=== PATIENT | female | born 1975 | race Caucasian/White ===

== ENCOUNTER → 2017-02-18 | Outpatient (CLI) | payer OTHER ==
--- NOTE | 2017-02-19 07:19 | CONS ---
DATE OF CONSULTATION: 02/18/2017 CONSULTATION/NEW PATIENT EVALUATION: A 41-year-old lady who has been evaluated in the [facility] for obstructive sleep apnea-hypopnea syndrome. HISTORY OF PRESENT ILLNESS/SLEEP-WAKE EVALUATION: Patient had been diagnosed with obstructive sleep apnea about 8 years ago in [facility]. She was started on treatment with CPAP unit but about 3 years, because of bad condition of her CPAP unit, some problem with humidification and bad condition of her humidifier, patient stopped using her CPAP equipment. SLEEP SCHEDULE: Presenting her sleep schedule from around 8:30 p.m. until 4:30 a.m. on working days and from around 9:30 p.m. until 7:30 a.m. on weekends. FALLING ASLEEP: She usually has problem with the falling asleep secondary to room noise, light, too hot situation, pain, child, stress. She wakes TV in bedroom. DURING SLEEP: Usually sleeps on the back or side position with snoring, witnessed episodes of stopped breathing during the sleep. She wakes up from sleep with dry mouth, panic attacks, grinding teeth, palpitations, gasping for air up to 20 times with up to 4 episodes of nocturia. DURING THE DAY/WAKE STATE: In the morning patient wakes up tired, has difficulties to pay attention, falling asleep during the day, worries about her sleep, has problems with mainly concentration, depression, anxiety, claustrophobia, sexual dysfunction. [place] Sleepiness Scale significantly increased to 15. MEDICATIONS: Ultram, Klonopin, Flexeril, eardrops steroids with erythromycin. PAST MEDICAL HISTORY: Positive for closed head injury in 2015 with subdural hematoma. Episodes of very severe headaches in the back of her head since she has had closed head injury. PAST SURGICAL HISTORY: Cholecystectomy, surgery for carpal tunnel syndrome, tonsillectomy, tubal ligation, ( ) construction. SOCIAL HISTORY: Positive for smoking for about 15 pack-years; quit around 2014. Alcohol consumption none at the present time. REVIEW OF SYSTEMS: Multiple awakenings from sleep, excessive daytime sleepiness, episodes of strong headaches. FAMILY HISTORY: Hypertension, heart problems, hyperlipidemia, stroke, fibromyalgia, arthritis, lung problems, emphysema, sleep apnea, snoring, pneumonia, headaches, cancer, insomnia, acid reflux, ulcers, thyroid problems, iron deficiency and B12 deficiency anemia. During physical exam, a lady without distress. BP 109/76, HR 85, RR 16. Height 5, 5. Weight 212.2. BMI 35.2. Neck 15 inches in circumference [place] Sleepiness Scale 15. Temperature 98. Oxygen saturation at room air 100%. Oropharynx extremely low position of soft palate, restriction of nasal breathing significantly on the left side. ABDOMEN: Obese. EXTREMITIES: 1+ ankle edema. NECK: Supple. No JVD. Thyroid is not palpable. LUNGS: Clear to percussion and to auscultation. Good air exchange. No wheezing or rhonchi. HEART: S1, S2 regular. No murmurs, gallops or rubs. REGIONAL TRAINER: Awake, alert, and oriented x3. Cranial nerves 2 to 7 intact. There is no fasciculation or atrophy noted. No focal deficits observed. IMPRESSION: 1. Snoring, witnessed episodes of stopped breathing during the sleep, extremely low position of soft palate, multiple awakenings from sleep, history of obstructive sleep apnea-hypopnea syndrome. 2. Obesity, body mass index of 35.2. 3. Status post a closed head injury with subdural hematoma in 2014. 4. Episodes of extremely strong headaches on the back of her head. 5. Status post cholecystectomy. 6. Status post surgery for carpal tunnel syndrome bilaterally. 7. Status post tubal ligation. 8. Status post section. PLAN: 1. Polysomnography for evaluation of patient's breathing during sleep. 2. CPAP/BiPAP titration if sleep study confirms obstructive sleep apnea-hypopnea syndrome. 3. Preferable position during sleep on the side. 4. No driving if patient feels any sleepiness. Patient is aware of civil and criminal liability for unsafe driving. 5. I will see patient for follow-up visit to explain results of the testing and following plan. Thank you very much for referring this patient for consultation. Sincerely, Ricky Rg MD, PhD, FAASM. Diplomat of [employer], Sleep Medicine Board by [employer] of [facility] [place]
== END | disposition home or self-care (01) ==
LOC: SLEEP 16:13
PROVIDERS: ATTEND Internal Medicine
DX: E66.9 Obesity, unspecified (principal); R06.83 Snoring; R51 Headache; Z68.35 Body mass index [BMI] 35.0-35.9, adult; Z90.49 Acquired absence of other specified parts of digestive tract; Z98.890 Other specified postprocedural states; Z79.899 Other long term (current) drug therapy
CPT/HCPCS: 99201

== ENCOUNTER → 2017-06-10 | Outpatient (CLI) | payer OTHER ==
--- NOTE | 2017-06-11 08:10 | PN ---
A 42-year-old lady who has been followed in Sleep Center for treatment of severe obstructive apnea-hypopnea syndrome. Recently patient had diagnostic sleep study and CPAP titration and I discussed results of the sleep studies with patient in detail. Diagnostic sleep study severe obstructive sleep apnea-hypopnea syndrome with apnea-hypopnea index 36.2 and oxygen desaturation to 84.1%. CPAP titration showed that only with the pressure of 15 patients respirations were under control. Subsequently, patient was started on treatment with CPAP. She indicated that she feels that pressure is too high for her and she sometimes has headaches related to the pressure. During the test in Sleep Center she feels well on the following day and sometimes when she is using machine she feels well but most of the time again she feels the pressure is too much. I checked her CPAP unit. CPAP pressure is 15 cm of water. The patient used equipment 14 out of 30 nights and 8 out of 30 nights for more than 4 hours. Average usage is 4.6 hours. No significant leak 54 liters per minute. Apnea- hypopnea index with the machine is in normal range and is 2.1 per hour. MEDICATIONS: Ultram, Klonopin, Flexeril, eye drops. During physical exam, the patient is in no distress. VITAL SIGNS: BP 126/75, HR 86, RR 16, weight 213, temp 98.2, oxygen saturation on room air 98%. HEENT: PERRLA, EOMI. Evaluation of oropharynx showed moderate to extremely low position of soft palate. NECK: Supple. No JVD. Thyroid is not palpable. LUNGS: clear to percussion and to auscultation. Good air exchange. No wheezing or rhonchi. HEART: S1, S2 regular. No murmurs, gallops or rubs. ABDOMEN: Obese. Soft and nontender. Bowel sounds are present. No organomegaly appreciated. EXTREMITIES: No cyanosis or clubbing. PROJECT FINANCE ANALYST: Awake, alert and oriented x3. Cranial nerves II through VII intact. There is no fasciculation or atrophy noted. No focal deficits observed. IMPRESSION: 1. Severe obstructive sleep apnea-hypopnea syndrome. Apnea-hypopnea index 36.2 with oxygen desaturation to 84.15. Respirations normalized with CPAP but patient feels the pressure is too high for her and sometimes develops headaches. 2. Obesity. 3. Status post closed head injury with subdural hematoma in 2014. 4. Episodes of extremely strong headaches. 5. Status post cholecystectomy. 6. Status post surgical treatment for carpal tunnel syndrome bilaterally. 7. Status post tubal ligation. 8. Status post . PLAN: 1. I will adjust machine to automatic regimen in the pressure range between 5 and 15 cm of water to check possibly to decrease pressure in the unit. 2. Continue to use CPAP equipment every night. 3. Losing weight. 4. Sleep hygiene with regular time in bed for at least 8 hours. 5. No driving if patient feels any sleepiness. Thank you very much for allowing me to participate in the management of your patient. Sincerely, Jyoti Rg MD, PhD, FAASM Diplomat of [employer] [employer], Sleep Medicine Board by [employer] Cardiology Clinical Nurse Specialist of [facility] [place] [facility]
== END | disposition home or self-care (01) ==
LOC: SLEEP 16:22
PROVIDERS: ATTEND Internal Medicine
DX: G47.33 Obstructive sleep apnea (adult) (pediatric) (principal); E66.9 Obesity, unspecified; Z90.49 Acquired absence of other specified parts of digestive tract; Z98.890 Other specified postprocedural states

== ENCOUNTER → 2017-07-15 | Outpatient (CLI) | payer OTHER ==
--- NOTE | 2017-07-16 13:55 | PN ---
PROGRESS NOTE DATE OF SERVICE: 07/15/2017 A 42-year-old lady who had been followed in the Sleep Center for treatment of obstructive sleep apnea-hypopnea syndrome and insomnia. At the present time, she is on treatment with CPAP with a pressure of 13 cm of water and she was able to use equipment for the last month with 57% of the time and 40% of the time it was more than 4 hours per night. Apnea-hypopnea index reading from the machine is 3.1, which is in normal range. Patient did not experience any chest discomfort with this pressure of the machine. But she still continued to have problem with falling asleep, only again now if she falls asleep, then she is able to sleep through better than before. [place] Sleepiness Scale today is 5. MEDICATIONS: Baclofen, Motrin. PHYSICAL EXAM: Patient in no distress. BP 104/75, HR 90, RR 16, height 5, 5. Weight 212. BMI 35. Temp 98.2, oxygen saturation at room 100%. OROPHARYNX: Moderately to extremely low position of soft palpate. ABDOMEN: Slightly obese. NECK: Supple, no JVD. Thyroid is not palpable. LUNGS Clear to percussion and to auscultation. Good air exchange. No wheezing or rhonchi. HEART S1, S2 regular. No murmurs, gallops, or rubs. EXTREMITIES No clubbing or cyanosis. IRON MINER BLASTING Awake, alert, and oriented X3. Cranial nerves 2 to 7 intact. There is no fasciculation or atrophy. noted. No focal deficits observed. IMPRESSION: 1. Severe obstructive sleep apnea-hypopnea syndrome. Apnea-hypopnea index 36.2 with oxygen desaturation to 84%. With decreasing pressure, patient improved using her CPAP equipment. No chest pain at the present time. Benefiting from treatment. 2. Mild obesity. 3. Status post closed head injury with subdural hematoma in 2014. 4. Episodes of strong headaches. According to patient is still present but better than before. 5. Status post cholecystectomy. 6. Status post surgical treatment for carpal tunnel syndrome bilaterally. 7. Status post tubal ligation. 8. Status post . PLAN: 1. We will try trazodone with adjustments of the dose to help patient with falling asleep. 2. Patient will continue to use her CPAP equipment every night for the whole night. I will decrease pressure down to 12 cm of water. 3. I discussed with the patient stimulus control, paradoxical intention, time, no watching clock for helping with insomnia. 4. No driving if feeling any sleepiness. 5. Sleep hygiene with regular time in bed for 7-1/2 hours. Thank you very much for allowing me to participate in the management of your patient. Sincerely, Ricky Rg MD, PhD, FAASM Diplomat of [employer] Private Security Guard of [facility] [place] MMODL / IJN: [id number] /
== END | disposition home or self-care (01) ==
LOC: SLEEP 16:46
PROVIDERS: ATTEND Internal Medicine
DX: G47.33 Obstructive sleep apnea (adult) (pediatric) (principal); E66.9 Obesity, unspecified; Z90.49 Acquired absence of other specified parts of digestive tract; Z98.51 Tubal ligation status; Z98.890 Other specified postprocedural states; Z79.1 Long term (current) use of non-steroidal anti-inflammatories (NSAID); Z79.899 Other long term (current) drug therapy

== ENCOUNTER → 2017-11-18 | Outpatient (CLI) | payer OTHER ==
--- NOTE | 2017-11-18 12:27 | PN ---
PROGRESS NOTE FOLLOW-UP VISIT DATE OF SERVICE: 11/18/2017 This 42-year-old lady has been followed in the sleep center for her sleep problems. The patient referred that she is sleeps better now. I started her on treatment with trazodone and with this medication which she has not taking every night she is able to fall asleep much easier. Her CPAP pressure was decreased last time to 12 cm of water and she able to use her equipment without significant problem now except she feels that the pressure at the beginning when she used her machine is a little bit too low and maybe still a little bit too high for her. I checked her CPAP unit. CPAP pressure is 12 cm of water. REM starting from 4 cm of water for 10 minutes. She used it 17 out of 30 nights for the last month and only 8 nights for more than 4 hours because average usage is 4.0 hours. Apnea-hypopnea index is 3.4, which is in normal range. Leak is significant 80 L/minute. MEDICATIONS: Motrin, Flexeril and trazodone on a p.r.n. basis. PHYSICAL EXAM: During physical exam, the patient in no distress. VITAL SIGNS: BP 125/84, HR 80, RR 16, height 5 feet 5 inches, weight 221, BMI 36.7, temperature 97.9, oxygen saturation in room air 99%. HEENT: PERRLA, EOMI. Oropharynx moderately low position of soft palate. NECK: Supple, no JVD. Thyroid is not palpable. LUNGS: Clear to percussion and to auscultation. Good air exchange. No wheezing or rhonchi. HEART: S1, S2 regular. No murmurs, gallops, or rubs. ABDOMEN: Slightly obese. EXTREMITIES: No clubbing or cyanosis. DIGITAL RETOUCHER: Awake, alert, and oriented X3. Cranial nerves 2 to 7 intact. There is no fasciculation or atrophy. noted. No focal deficits observed. IMPRESSION: 1. Severe obstructive sleep apnea-hypopnea syndrome, apnea-hypopnea index 36.2 with oxygen desaturation to 84%. Breathing normalized on CPAP at 12 cm of water. Apnea- hypopnea index 3.4. The patient is using equipment borderline periods of time about 4 hours per night, benefitting from treatment. [place] Sleepiness Scale is 5. 2. Difficulties to initiate sleep, basically improved with the usage of trazodone. 3. Mild obesity. 4. Status post closed head injury with subdural hematoma in 2015. 5. Episodes of headaches. She referred that she feels much better. 6. Status post cholecystectomy. 7. Status post surgical treatment for carpal tunnel syndrome bilaterally. 8. Status post tubal ligation. 9. Status post . PLAN: 1. I adjusted ramp to start from 6 cm of water instead of 4. 2. I decreased CPAP pressure down to 11 cm of water. 3. The patient will try to use equipment every night for the whole night. 4. Losing weight. The patient increased her weight on about 9 pounds since previous visit several months ago. 5. Precautions related to driving. No driving if feeling any sleepiness. 6. Sleep hygiene with regular time in bed for at least 7-1/2 hours. 7. Continue treatment with trazodone and psychological techniques for treatment of insomnia. Thank you very much for allowing me to participate in management of your patient. Sincerely, Ricky Rg MD, PhD, FAASM Diplomat of [employer] Supervisor of [facility] [place] MMODL / IJN: [id number] /
== END | disposition home or self-care (01) ==
LOC: SLEEP 11:04
PROVIDERS: ATTEND Internal Medicine
DX: G47.33 Obstructive sleep apnea (adult) (pediatric) (principal); E66.9 Obesity, unspecified; R51 Headache; Z99.89 Dependence on other enabling machines and devices; Z79.899 Other long term (current) drug therapy; Z98.890 Other specified postprocedural states; Z87.820 Personal history of traumatic brain injury; Z90.49 Acquired absence of other specified parts of digestive tract; Z98.51 Tubal ligation status; Z79.1 Long term (current) use of non-steroidal anti-inflammatories (NSAID)